=== PATIENT | female | born 1970 | race Hispanic/Latino ===

== ENCOUNTER 2024-04-12 14:56 | Outpatient (CLI) | payer BC | END 2024-04-12 14:57 | disposition home or self-care (01) | LOC: SCSRAD 14:56 | DX: R06.00 Dyspnea, unspecified (principal) | CPT/HCPCS: 71046 ==

== ENCOUNTER 2025-02-13 08:05 | Outpatient (CLI) | payer BC | END 2025-02-13 08:06 | disposition home or self-care (01) | LOC: BICMAMMO 08:05 | PROVIDERS: ATTEND Family Medicine | DX: Z12.31 Encounter for screening mammogram for malignant neoplasm of breast (principal) | CPT/HCPCS: 77063; 77067 ==